=== PATIENT | female | born 1965 | race Caucasian/White ===

== ENCOUNTER 2016-09-04 16:18 | Emergency (ER) | payer OTHER ==
[2016-09-04] MEDS ORDERED: EFFEXOR XR75 M1 PO (17:37)
[2016-09-04] MEDS ORDERED: ZYRTEC10 M7 PO (17:38)
[2016-09-04] MEDS ORDERED: SINGULAIR10 M1 PO (17:38)
== END 2016-09-04 19:01 ==
LOC: EDMED 16:18
DX: M79.662 Pain in left lower leg (principal); J45.909 Unspecified asthma, uncomplicated; Z79.51 Long term (current) use of inhaled steroids